=== PATIENT | female | born 1955 | race African-American/Black ===

== ENCOUNTER 2020-04-28 14:45 | Emergency (ER) | payer SELFPAY ==
[~2020-04-28] VITALS: Ht 157.5 cm; Wt 62.0 kg
[2020-04-28] MEDS ORDERED: FUROSEMIDE 40MG/4ML VIAL IVP ONE (15:15)
[2020-04-28 15:54] LABS: HEMATOCRIT. 31.2 % (36.0-48.0); HEMOGLOBIN. 10.7 g/dL (12.0-16.0); MEAN CORPUSCULAR HEMOGLOBIN 33.8 pg (28.0-32.0); MEAN CORPUSCULAR VOLUME 98.3 fL (81.0-99.0); MEAN PLATELET VOLUME 7.9 fl (7.4-10.4); PLATELET 302 x1000/uL (130-400); RED BLOOD CELL COUNT 3.18 mill/uL (4.2-5.4)
[2020-04-28 15:57] LABS: HCG SCREEN NEGATIVE
[2020-04-28 15:59] LABS: CHLORIDE 95 mEq/L (98-107); INR 1.2; PROTHROMBIN TIME 12.4 sec (9.6-11.0)
[2020-04-28] MEDS ORDERED: SODIUM BICARBONATE 4% (2.4MEQ) 5ML VIAL IV ONE (16:07)
[2020-04-28] MEDS ORDERED: LIDOCAINE HCL 1% 20ML VIAL (Pyxis) INJ ONE (16:07)
[2020-04-28 17:00] LABS: PLATELET ESTIMATE NORMAL
[2020-04-28 18:39] VITALS: BP 120/62
== END 2020-04-28 18:57 | disposition home or self-care (01) ==
LOC: ER 14:45 → CANBEDREQ 21:20
DX: R18.8 Other ascites (principal); D64.9 Anemia, unspecified; K76.9 Liver disease, unspecified; Z91.018 Allergy to other foods; Z98.890 Other specified postprocedural states
CPT/HCPCS: 36415; 49083; 71045; 80053; 82040; 83605; 83690; 83880; 84157; 84703; 85025; 85610; 87070; 87075; 87205; 88108; 89050; 93005; 99285; J3490; Z7610; J1940